=== PATIENT | female | born 1970 | race American Indian/Alaskan Native ===

== ENCOUNTER 2017-03-31 11:41 | Outpatient (CLI) | payer OTHER ==
--- NOTE | 2017-03-31 12:26 | Ultrasound Report ---
ULTRASOUND THYROID SCAN History: Asymmetric thyroid gland. Findings: The thyroid gland is normal size, contour and echotexture. No evidence for thyroid cyst or mass. The right lobe measures 4.7 cm in length. The left lobe measures 3.6 cm in length. Impression: Normal thyroid exam.
== END 2017-03-31 11:42 | disposition home or self-care (01) ==
LOC: SPVWC 11:41
PROVIDERS: ATTEND Internal Medicine
DX: E07.9 Disorder of thyroid, unspecified (principal)
CPT/HCPCS: 76536